=== PATIENT | female | born 1975 | race Caucasian/White ===

== ENCOUNTER 2016-08-22 13:58 | Outpatient (CLI) | payer OTHER ==
[2016-08-22] MEDS ORDERED: IOHEXOL 50 ML IV ONE (14:24)
== END 2016-08-22 18:08 | disposition home or self-care (01) ==
LOC: SRD 13:58
PROVIDERS: ATTEND Specialist
DX: N97.9 Female infertility, unspecified (principal)
CPT/HCPCS: 74740; C1751; Q9967

== ENCOUNTER 2017-05-15 16:40 | Inpatient (IN) | payer OTHER ==
[~2017-05-15] VITALS: Ht 162.6 cm; Wt 77.1 kg
[2017-05-15] MEDS ORDERED: TEMAZEPAM 15 MG CAPSULE PO PRN (18:00)
[2017-05-15] MEDS ORDERED: hydrALAZINE HCL 10 MG TABLET PO ONE (19:00)
[2017-05-15] MEDS ORDERED: FLU VACC QS 2017-18(36MOS+)/PF 0.5 ML/SYR SYRINGE I.M. PRN (21:00)
[2017-05-15] MEDS ORDERED: hydrALAZINE HCL 10 MG TABLET ONE (21:51)
[2017-05-15] MEDS: LR 1,000 ML IV SCH (22:01)
[2017-05-16] MEDS ORDERED: hydrALAZINE HCL 10 MG TABLET PO SCH (09:00)
[2017-05-16] MEDS: hydrALAZINE HCL 10 MG TABLET PO SCH ×2 (10:17→22:30)
[2017-05-16] MEDS ORDERED: BETAMET ACET/BETAMET NA PH 30 MG/5 ML VIAL IM ONE (11:30)
[2017-05-16] MEDS: LR 1,000 ML IV SCH (22:30)
[2017-05-17] MEDS: hydrALAZINE HCL 10 MG TABLET PO SCH ×2 (10:15→22:05)
[2017-05-17] MEDS: LR 1,000 ML IV SCH (19:41)
[2017-05-17] MEDS ORDERED: hydrALAZINE HCL 10 MG TABLET ONE (21:46)
[2017-05-18] MEDS ORDERED: DIPH-TET-PERTUS Vaccine 0.5 ML VIAL (ADACEL) I.M. ONE (09:45)
[2017-05-18] MEDS: hydrALAZINE HCL 10 MG TABLET PO SCH (09:58)
== END 2017-05-18 10:00 | disposition home or self-care (01) | DRG 782 ==
LOC: SPU 16:40
PROVIDERS: ADMIT Specialist; ATTEND Specialist
DX: O13.3 Gestational [pregnancy-induced] hypertension without significant proteinuria, third trimester (principal); O41.03X0 Oligohydramnios, third trimester, not applicable or unspecified; Z3A.34 34 weeks gestation of pregnancy; Z88.8 Allergy status to other drugs, medicaments and biological substances
CPT/HCPCS: 59025; 81002-TC; 90715; J0702; J7120; Q2037